=== PATIENT | female | born 1970 | race Caucasian/White ===

== ENCOUNTER 2019-10-14 19:32 | Emergency (ER) | payer BC ==
[~2019-10-14] VITALS: Ht 154.9 cm; Wt 102.1 kg
[2019-10-14] MEDS ORDERED: CLINDAMYCIN (19:45)
[2019-10-14] MEDS ORDERED: LEXAPRO 10 MG T10 M2 PO (19:45)
[2019-10-14 20:54] LABS: ABSOLUTE BASOPHILS 0.1 thou/uL (0.0-0.2); ABSOLUTE EOSINOPHILS 0.1 thou/uL (0.0-0.7); ABSOLUTE LYMPHOCYTES 2.2 thou/uL (0.8-5.3); ABSOLUTE MONOCYTES 0.8 thou/uL (0.0-1.2); ABSOLUTE NEUTROPHILS 5.7 thou/uL (1.6-8.1); BASOPHILS 0.9 %; EOSINOPHILS 0.8 %; HEMATOCRIT 41.3 % (37.0-47.0); HEMOGLOBIN 14.4 gm/dL (12.0-15.0); MCH 31.2 pg (26.0-34.0); MCHC 34.9 g/dL (28.0-37.0); MCV 89.4 fL (80.0-100.0); MONOCYTES 8.7 %; MPV 7.8 fl. (7.2-11.1); NUCLEATED RBCS 0 /100WBC; PLATELET COUNT* 314 thou/uL (150-400); POLYS 64.6 %; RBC 4.61 mil/uL (4.20-5.00); RDW-CV 13.2 % (10.5-14.5); WBC 8.8 thou/uL (4.0-11.0)
[2019-10-14 21:02] LABS: CALCIUM 9.1 mg/dL (8.5-10.1); POTASSIUM 3.7 mmol/L (3.5-5.1)
[2019-10-14] MEDS ORDERED: HYDROCODON-ACE1 EAC8 PO (22:40)
[2019-10-14 23:26] VITALS: BP 167/95
== END 2019-10-14 23:26 | disposition home or self-care (01) ==
LOC: M.ERS 19:32
PROVIDERS: Emergency Medicine
DX: K14.8 Other diseases of tongue (principal); R22.0 Localized swelling, mass and lump, head; K13.79 Other lesions of oral mucosa; Z87.442 Personal history of urinary calculi; Z88.0 Allergy status to penicillin